=== PATIENT | male | born 1990 | race African-American/Black ===

== ENCOUNTER 2019-01-09 23:18 | Emergency (ER) | payer MEDICAID ==
[~2019-01-09] VITALS: Ht 185.4 cm; Wt 88.0 kg
[2019-01-10] MEDS: IBUPROFEN 600MG TABLET PO ONE (00:48)
[2019-01-10 01:49] VITALS: BP 139/70
== END 2019-01-10 01:53 | disposition home or self-care (01) ==
LOC: ER 23:18
DX: S90.32XA Contusion of left foot, initial encounter (principal); W18.39XA Other fall on same level, initial encounter; Y93.89 Activity, other specified; Y92.89 Other specified places as the place of occurrence of the external cause; Y99.8 Other external cause status
CPT/HCPCS: 73630; 99283

== ENCOUNTER 2021-04-20 00:41 | Emergency (ER) | payer MEDICAID ==
[~2021-04-20] VITALS: Ht 182.9 cm; Wt 91.0 kg
[2021-04-20 00:42] VITALS: BP 132/88
[2021-04-20] MEDS ORDERED: ACETAMINOPHEN 325MG TABLET PO ONE (01:45)
== END 2021-04-20 01:58 | disposition left against medical advice (07) ==
LOC: ER 01:13
DX: S00.83XA Contusion of other part of head, initial encounter (principal); V49.49XA Driver injured in collision with other motor vehicles in traffic accident, initial encounter; W22.11XA Striking against or struck by driver side automobile airbag, initial encounter; Y93.89 Activity, other specified; Y92.488 Other paved roadways as the place of occurrence of the external cause
CPT/HCPCS: 99283

== ENCOUNTER 2022-10-15 14:18 | Emergency (ER) | payer MEDICAID ==
[~2022-10-15] VITALS: Ht 188 cm; Wt 89.0 kg
[2022-10-15 15:45] VITALS: BP 157/99
[2022-10-15] MEDS ORDERED: ASPIRIN 81MG TABLET PO ONE (15:45)
[2022-10-15 16:41] LABS: HEMATOCRIT. 46.9 % (42.0-52.0); HEMOGLOBIN. 16.1 g/dL (14.0-18.0); MEAN CORPUSCULAR HEMOGLOBIN 29.3 pg (28.0-32.0); MEAN CORPUSCULAR VOLUME 85.4 fL (80.0-94.0); MEAN PLATELET VOLUME 8.1 fl (7.4-10.4); PLATELET 316 x1000/uL (130-400); RED BLOOD CELL COUNT 5.49 mill/uL (4.7-6.1)
[2022-10-15 16:49] LABS: CHLORIDE 95 mEq/L (98-107)
[2022-10-15 17:38] LABS: PLATELET ESTIMATE NORMAL
== END 2022-10-15 19:14 | disposition home or self-care (01) ==
LOC: ER 14:28
DX: R07.89 Other chest pain (principal); R00.2 Palpitations; R06.02 Shortness of breath; F17.200 Nicotine dependence, unspecified, uncomplicated
CPT/HCPCS: 36415; 71045; 80053; 84484; 85025; 93005; 99285; Z7610